=== PATIENT | female | born 1950 ===

== ENCOUNTER 2017-10-14 17:34 | Inpatient (IN) | payer MEDICARE, SELFPAY ==
[~2017-10-14 17:34] MED LIST: Calcium Chloride 1 GM/10 ML Abboject SYRINGE ONE; EPINEPHrine 1 MG/10 ML Abboject SYRINGE ONE; ISOVUE-370 76%-LOCM 1 ML ONE; Sodium Bicarb 50 MEQ/50 ML Abboject 8.4% SYRINGE ONE
[2017-10-14] MEDS ORDERED: Calcium Chloride 1 GM/10 ML Abboject SYRINGE ONE (17:46)
[2017-10-14] MEDS ORDERED: CEFAZOLIN/Water 2 GM/20 ML SYRINGE ONE (17:49)
[2017-10-14] MEDS ORDERED: Adacel (T-DAP) 0.5 ML VIAL ONE (17:51)
[2017-10-14 17:56] LABS: #Eosinphils 0.1 thou/uL (0.0-0.7); #Lymphocytes 4.2 thou/uL (1.20-3.40); #Monocytes 0.2 thou/uL (0.11-0.59); #Neutrophils 7.7 thou/uL (1.40-6.50); %Basophils 0.3 % (0.0-1.0); %Eosinophils 0.7 % (0.0-10.0); %Lymphocytes 34.5 % (21.0-51.0); %Monocytes 1.7 % (0.0-10.0); %Neutrophils 62.8 % (42.0-75.0); Hemoglobin 11.4 g/dL (12.0-16.0); Mean Corpuscular HGB CONC 32.7 g/dL (32.0-36.0); Mean Corpuscular Hemoglobin 28.8 pg (27.0-31.0); Mean Corpuscular Volume 87.9 fl (81.0-99.0); Platelet Count 308 thou/uL (130-400); RBC Distribution Width 13.7 % (11.5-14.5); Red Blood Cell (RBC) Count 3.98 mill/uL (4.20-5.40); White Blood Cell (WBC) Count 12.2 thou/uL (4.8-10.8)
[2017-10-14 18:03] LABS: INR-International Normal Ratio 1.2; PTT 23.1 SEC (22.9-36.1); Prothrombin Time 15.5 SEC (12.0-14.7)
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
[2017-10-14 18:14] LABS: ALT (SGPT) 138 U/L (8-55); AST (SGOT) 194 U/L (5-34); Albumin 3.2 g/dL (3.4-4.8); Alkaline Phosphatase 124 U/L (40-150); Anion Gap 14 mmol/L (10-20); BUN (Urea Nitrogen) 14 mg/dL (9.8-20.1); Bilirubin, Total 0.7 mg/dL (0.2-1.2); Calc. Creatinine Clearance 0 mL/min (70-130); Carbon Dioxide 16 mmol/L (23-31); Chloride 115 mmol/L (98-107); Estimated GFR-MDRD 38; Globulin 2.7 g/dL (2.4-3.5); Glucose 158 mg/dL (80-115); Lipase 144 U/L (8-78); Potassium 4.9 mmol/L (3.5-5.1); Protein, Total 5.9 g/dL (6.0-8.3); Sodium 140 mmol/L (136-145)
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
[2017-10-14] MEDS ORDERED: Fentanyl 100 MCG/2 ML VIAL ONE ×3 (18:26→20:01)
[2017-10-14 18:28] LABS: Bilirubin Negative (Negative); Blood, Urine Large (Negative); Clarity CLEAR (Clear); Glucose, Urine (Dipstick) Negative (Negative); Leukocyte Negative (Negative); Nitrite Negative (Negative); Protein, Urine (Dipstick) 30 mg/dL (Neg-Trace); Specific Gravity, Urine 1.019 (1.002-1.036)
[2017-10-14 18:29] LABS: Troponin I 0.121 ng/mL (< 0.028)
[2017-10-14] MEDS ORDERED: fentaNYL Citrate/PF 2,000 MCG in Sodium Chloride 0.9% 60 ML IV SCH (18:30)
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
[2017-10-14 18:31] LABS: Bacteria/HPF None Seen HPF (None Seen); Hyaline Casts/LPF 4-6 HYALINE CAST LPF (0-3 Hyaline); Pathc Cast-AUWi Flag 1.16 (0-2.49); RBC/HPF GREATER THAN 50-TNTC HPF (0-3)
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
[2017-10-14 18:35] LABS: Calcium Greater than 17.0 mg/dL (7.8-10.44)
[2017-10-14 18:37] LABS: Amphetamine Not Detected (NotDetected); Barbiturates Screen Not Detected (NotDetected); Benzodiazepine Screen Not Detected (NotDetected); Cocaine Metabolite Screen Not Detected (NotDetected); Medtox Control Line Valid? VALID (VALID); Medtox Reader # READER 1; Methadone Not Detected (NotDetected); Methamphetamine Not Detected (NotDetected); Opiate Screen Not Detected (NotDetected); Oxycodone Screen Not Detected (NotDetected); Phencyclidine (PCP) Not Detected (NotDetected); THC/Cannabinoid Screen Not Detected (NotDetected); Tricyclic Screen Not Detected (NotDetected)
[2017-10-14 18:38] LABS: CKMB 6.7 ng/mL (0-6.6)
[2017-10-14 18:40] LABS: Renal Epithelial None Seen HPF (0-3); Transitional Epithelial NONE SEEN HPF (0-3)
[2017-10-14] MEDS ORDERED: Dextrose 50% Abboject 50 ML SYRINGE SLOW IVP PRN (19:14)
[2017-10-14] MEDS ORDERED: Dextrose 5% in Water 1,000 ML IV PRN (19:14)
[2017-10-14] MEDS ORDERED: Ondansetron HCl/PF 4 MG/2 ML Vial IVP PRN (19:14)
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
[2017-10-14] MEDS ORDERED: Fentanyl CADD 250 ML IVPB SCH (19:30)
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
[2017-10-14] MEDS ORDERED: PROPOFOL 0 ML ONE (20:06)
[2017-10-14] MEDS ORDERED: Propofol 1,000 MG/100 ML VIAL IV ONE (20:07)
[2017-10-14] MEDS ORDERED: Fentanyl 100 MCG/2 ML VIAL SLOW IVP SCH (20:15)
[2017-10-14] MEDS ORDERED: methylPREDNISolone Sod Succ 2 GM in Sodium Chloride 0.9% 100 ML IVPB SCH (20:30)
[2017-10-14] MEDS ORDERED: Lactated Ringer's 1,000 ML IV SCH (21:00)
[2017-10-14] MEDS ORDERED: METHYLPREDNISOLONE SOD SUCC IVPB SCH (21:00)
[2017-10-14] MEDS ORDERED: Famotidine 40 MG/4 ML VIAL SLOW IVP SCH (21:00)
[2017-10-14] MEDS ORDERED: SODIUM CHLORIDE 0.9% IVPB SCH (21:00)
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
[2017-10-14] MEDS: fentaNYL Citrate/PF 2,000 MCG in Sodium Chloride 0.9% 60 ML IV SCH (21:44)
[2017-10-14 22:22] LABS: Lactic Acid 5.6 mmol/L (0.5-2.2)
[2017-10-14 23:11] LABS: #Lymphocytes 1.2 thou/uL (1.20-3.40); #Monocytes 0.4 thou/uL (0.11-0.59); #Neutrophils 7.6 thou/uL (1.40-6.50); %Basophils 0.1 % (0.0-1.0); %Eosinophils 0.5 % (0.0-10.0); %Lymphocytes 12.6 % (21.0-51.0); %Monocytes 4.7 % (0.0-10.0); %Neutrophils 82.2 % (42.0-75.0); Hemoglobin 13.7 g/dL (12.0-16.0); INR-International Normal Ratio 1.1; Mean Corpuscular HGB CONC 34.6 g/dL (32.0-36.0); Mean Corpuscular Hemoglobin 29.2 pg (27.0-31.0); Mean Corpuscular Volume 84.4 fl (81.0-99.0); Mean Platelet Volume 7.7 fL (7.4-10.4); Platelet Count 240 thou/uL (130-400); Prothrombin Time 14.2 SEC (12.0-14.7); RBC Distribution Width 13.5 % (11.5-14.5); White Blood Cell (WBC) Count 9.3 thou/uL (4.8-10.8)
[2017-10-15] MEDS ORDERED: Morphine 4 MG/ML Carpuject SLOW IVP PRN (00:21)
[2017-10-15 00:23] VITALS: BMI 28.2
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
[2017-10-15] MEDS: Acetaminophen 1,000 MG in Premix Bag 1 BAG IVPB SCH ×5 (02:05→23:16)
[2017-10-15 02:34] LABS: Lactic Acid 12.5 mmol/L (0.5-2.2)
[2017-10-15 02:52] LABS: ALT (SGPT) 114 U/L (8-55); AST (SGOT) 281 U/L (5-34); Albumin 4.2 g/dL (3.4-4.8); Alkaline Phosphatase 130 U/L (40-150); Anion Gap 25 mmol/L (10-20); BUN (Urea Nitrogen) 26 mg/dL (9.8-20.1); Bilirubin, Total 3.2 mg/dL (0.2-1.2); Calc. Creatinine Clearance 37 mL/min (70-130); Calcium 11.3 mg/dL (7.8-10.44); Carbon Dioxide 13 mmol/L (23-31); Chloride 109 mmol/L (98-107); Estimated GFR-MDRD 30; Globulin 3.3 g/dL (2.4-3.5); Glucose 175 mg/dL (80-115); Protein, Total 7.5 g/dL (6.0-8.3); Sodium 144 mmol/L (136-145)
[2017-10-15 03:05] LABS: Band 24 % (5-11); Hemoglobin 14.2 g/dL (12.0-16.0); Lymphocytes 12 % (21-51); MDiff Complete? YES; Mean Corpuscular HGB CONC 33.9 g/dL (32.0-36.0); Mean Corpuscular Hemoglobin 28.3 pg (27.0-31.0); Mean Corpuscular Volume 83.5 fl (81.0-99.0); Mean Platelet Volume 7.5 fL (7.4-10.4); Monocytes 4 % (0-10); Neutrophil 59 % (42-75); PLT Morphology Comment Appears Adequate; Platelet Count 231 thou/uL (130-400); RBC Distribution Width 13.7 % (11.5-14.5); RBC Morphology Normal; Reactive Lymphocytes 1 % (0-10); Red Blood Cell (RBC) Count 5.01 mill/uL (4.20-5.40); White Blood Cell (WBC) Count 9.8 thou/uL (4.8-10.8)
[2017-10-15 03:25] LABS: CO2 Tension 33.5 mmHg (35.0-45.0); O2 Tension (PaO2) 581.3 mmHg (80.0-100.0); pH, Arterial 7.46 (7.35-7.45)
[2017-10-15 03:26] LABS: Actual Bicarbonate (HCO3a) 23.1 mEq/L (22-26); Base Excess (BEa) -0.1 mEq/L (0 (+/-) 2.5); Calcium, Ionized 1.4 mmol/L (1.12-1.30); Hematocrit-ABG 38.9 % (36.0-47.0); Hemoglobin (Hb) 12.9 g/dL (12.0-16.0)
[2017-10-15 03:27] LABS: ALV-art Gradient 89.825 (0-20); Puncture Site RBRACH
[2017-10-15] MEDS: METHYLPREDNISOLONE SOD SUCC IVPB SCH (03:38)
[2017-10-15] MEDS: SODIUM CHLORIDE 0.9% IVPB SCH (03:38)
[2017-10-15] MEDS: Propofol 1,000 MG/100 ML VIAL IV PRN ×2 (04:41→17:27)
[2017-10-15 04:56] LABS: CO2 Tension 16.5 mmHg (35.0-45.0); pH, Arterial 7.49 (7.35-7.45)
[2017-10-15 04:57] LABS: ALV-art Gradient 147.075 (0-20); Actual Bicarbonate (HCO3a) 12.3 mEq/L (22-26); Base Excess (BEa) -8.3 mEq/L (0 (+/-) 2.5); Calcium, Ionized 1.3 mmol/L (1.12-1.30); Hematocrit-ABG 38.9 % (36.0-47.0); Hemoglobin (Hb) 13.2 g/dL (12.0-16.0); O2 Tension (PaO2) 188.8 mmHg (80.0-100.0); Puncture Site ALINE
[2017-10-15] MEDS: Lactated Ringer's 1,000 ML IV SCH ×3 (05:20→17:26)
[2017-10-15] MEDS ORDERED: Potassium Chloride 40 MEQ in Premix Bag 1 BAG IVPB SCH (05:30)
[2017-10-15 05:58] LABS: Troponin I 1.135 ng/mL (< 0.028)
[2017-10-15] MEDS: Pantoprazole 40 MG VIAL IVP SCH (08:11)
[2017-10-15] MEDS ORDERED: Sodium Chloride 0.9% 20 ML ONE (09:33)
[2017-10-15] MEDS ORDERED: Thrombin 5000 UNITS/5 ML VIAL ONE ×2 (09:34→13:38)
[2017-10-15] MEDS ORDERED: Bacitracin Zinc Ointment 30 gm TUBE ONE (09:34)
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
[2017-10-15] MEDS ORDERED: Rocuronium Bromide 50 MG/5 ML VIAL ONE ×2 (11:55→14:59)
[2017-10-15] MEDS ORDERED: Sodium Bicarbonate 2.5 MEQ/5 ML VIAL ONE (12:34)
[2017-10-15] MEDS ORDERED: Sodium Bicarb 50 MEQ/50 ML Abboject 8.4% SYRINGE ONE ×2 (12:34→12:36)
[2017-10-15] MEDS ORDERED: Sodium Chloride 0.45% 1,000 ML IV SCH (13:15)
[2017-10-15] MEDS ORDERED: PHENYLEPHRINE-NS 100 MCG/ML 10 ML SYRINGE ONE ×4 (13:35→20:11)
[2017-10-15] MEDS ORDERED: Lidocaine 1% w/Epinephrine 1:200K 30 ML VIAL ONE (15:19)
[2017-10-15] MEDS ORDERED: CEFAZOLIN 1 GM VIAL ONE (15:20)
[2017-10-15] MEDS ORDERED: Midazolam HCl 2 mg/2 ml Vial ONE (16:21)
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
[2017-10-15] MEDS: fentaNYL Citrate/PF 2,000 MCG in Sodium Chloride 0.9% 60 ML IV SCH (17:54)
[2017-10-15 18:06] LABS: Actual Bicarbonate (HCO3a) 15.8 mEq/L (22-26); CO2 Tension 34.7 mmHg (35.0-45.0); O2 Tension (PaO2) 107.7 mmHg (80.0-100.0); pH, Arterial 7.28 (7.35-7.45)
[2017-10-15 18:07] LABS: Hematocrit-ABG 31.7 % (36.0-47.0); Hemoglobin (Hb) 11.4 g/dL (12.0-16.0)
[2017-10-15 18:08] LABS: Calcium, Ionized 1.3 mmol/L (1.12-1.30); Puncture Site A-LINE
[2017-10-15 18:09] LABS: ALV-art Gradient 205.425 (0-20)
[2017-10-15] MEDS: HumaLOG 300 UNITS/3 ML VIAL SC PRN (18:38)
[2017-10-15 18:41] LABS: Hemoglobin 11.9 g/dL (12.0-16.0); Mean Corpuscular HGB CONC 33.5 g/dL (32.0-36.0); Mean Corpuscular Hemoglobin 29.2 pg (27.0-31.0); Mean Corpuscular Volume 87.1 fl (81.0-99.0); Mean Platelet Volume 7.8 fL (7.4-10.4); Platelet Count 157 thou/uL (130-400); RBC Distribution Width 13.8 % (11.5-14.5); Red Blood Cell (RBC) Count 4.09 mill/uL (4.20-5.40); White Blood Cell (WBC) Count 9.9 thou/uL (4.8-10.8)
[2017-10-15 18:45] LABS: INR-International Normal Ratio 1.5; PTT 30.9 SEC (22.9-36.1); Prothrombin Time 18.7 SEC (12.0-14.7)
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
[2017-10-15 18:55] LABS: Band 42 % (5-11); Lymphocytes 6 % (21-51); MDiff Complete? YES; Metamyelocyte 6 % (0-0); Monocytes 2 % (0-10); Neutrophil 44 % (42-75); PLT Morphology Comment Appears Adequate; Polychromasia SLIGHT = 2-3 cells (100X) (0-2/hpf); Schistocytes SLIGHT = 2-5 cells (100X) (0-1/hpf)
[2017-10-15 19:08] LABS: Lactic Acid 7.4 mmol/L (0.5-2.2)
[2017-10-15] MEDS ORDERED: Calcium Chloride 1 GM/10 ML Abboject SYRINGE ONE (20:11)
[2017-10-15] MEDS: CEFAZOLIN 1 GM, Syringe 2.5 ML in Sterile Water 7.5 ML SLOW IVP SCH (20:43)
[2017-10-16] MEDS: Lactated Ringer's 1,000 ML IV SCH ×4 (02:49→21:51)
[2017-10-16] MEDS: SODIUM CHLORIDE 0.9% IVPB SCH (02:49)
[2017-10-16] MEDS: METHYLPREDNISOLONE SOD SUCC IVPB SCH (02:49)
[2017-10-16] MEDS: CEFAZOLIN 1 GM, Syringe 2.5 ML in Sterile Water 7.5 ML SLOW IVP SCH ×3 (02:56→20:46)
[2017-10-16 05:52] LABS: Band 28 % (5-11); Hemoglobin 10.9 g/dL (12.0-16.0); Lymphocytes 7 % (21-51); MDiff Complete? YES; Mean Corpuscular HGB CONC 33.2 g/dL (32.0-36.0); Mean Corpuscular Hemoglobin 28.6 pg (27.0-31.0); Mean Corpuscular Volume 86.1 fl (81.0-99.0); Mean Platelet Volume 7.9 fL (7.4-10.4); Metamyelocyte 2 % (0-0); Neutrophil 63 % (42-75); PLT Morphology Comment Appears Adequate; Platelet Count 154 thou/uL (130-400); RBC Distribution Width 13.9 % (11.5-14.5); Red Blood Cell (RBC) Count 3.83 mill/uL (4.20-5.40); White Blood Cell (WBC) Count 9.3 thou/uL (4.8-10.8)
[2017-10-16 06:00] LABS: Anion Gap 20 mmol/L (10-20); BUN (Urea Nitrogen) 28 mg/dL (9.8-20.1); Calc. Creatinine Clearance 42 mL/min (70-130); Calcium 8.1 mg/dL (7.8-10.44); Carbon Dioxide 13 mmol/L (23-31); Chloride 116 mmol/L (98-107); Estimated GFR-MDRD 37; Glucose 180 mg/dL (80-115); Magnesium 1.4 mg/dL (1.6-2.6); Phosphorus 5.2 mg/dL (2.3-4.7); Sodium 145 mmol/L (136-145)
[2017-10-16] MEDS ORDERED: Sodium Chloride 0.9% 500 ML IVPB PRN (06:03)
[2017-10-16] MEDS: Sodium Chloride 0.9% 500 ML IVPB SCH ×2 (06:11→07:12)
[2017-10-16 07:26] LABS: Actual Bicarbonate (HCO3a) 13.5 mEq/L (22-26); Base Excess (BEa) -9.4 mEq/L (0 (+/-) 2.5); CO2 Tension 21.4 mmHg (35.0-45.0); Hematocrit-ABG 26.8 % (36.0-47.0); O2 Tension (PaO2) 108.7 mmHg (80.0-100.0); pH, Arterial 7.42 (7.35-7.45)
[2017-10-16 07:27] LABS: Puncture Site ALINE
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
--- NOTE | 2017-10-16 08:31 | RAD ---
CHEST 1 VIEW: Date: 10/16/17 COMPARISON: 10/14/14. HISTORY: Respiratory failure. FINDINGS: Extensive postsurgical changes are noted. There is a right and left-sided chest tube. Endotracheal tu be is identified. NG tube extends beyond the diaphragm. Slightly improved aeration lung parenchyma. P atchy interstitial and to a lesser extent alveolar opacities do remain. IMPRESSION: 1. Persistent opacification of lung parenchyma. Continued surveillance. 2. Interval placement of screws in the thoracic spine. 3. Interval placement of bilateral chest tube. No obvious pneumothorax. POS: [facility]
[2017-10-16] MEDS ORDERED: Vasopressin 40 UNIT, Admixture Fee 1 EACH in Sodium Chloride 0.9% 100 ML IV SCH (09:30)
[2017-10-16] MEDS: Pantoprazole 40 MG VIAL IVP SCH (09:52)
[2017-10-16] MEDS: Piperacillin/Tazobactam 3.375 GM in Sodium Chloride 0.9% 100 ML IVPB SCH ×3 (09:52→22:25)
[2017-10-16] MEDS: Norepinephrine 8 MG/250 ML BAG IVPB PRN (09:53)
--- NOTE | 2017-10-16 12:45 | EKG ---
Test Reason : Blood Pressure : / mmHG Vent. Rate : 070 BPM Atrial Rate : 070 BPM P-R Int : 140 ms QRS Dur : 076 ms QT Int : 420 ms P-R-T Axes : 075 086 074 degrees QTc Int : 453 ms Normal sinus rhythm Normal ECG Poor quality suggest repeat No previous ECGs available Confirmed by DR. Briana CARRASQUILLO ([id number]) on 10/16/2017 12:44:59 PM Referred By: MATIAS Confirmed By:DR. Briana CARRASQUILLO
--- NOTE | 2017-10-16 13:48 | PRG ---
DATE OF SERVICE: 10/16/2017 Ms. Ranjana Hendricks is postoperative day 1 from a thoracic stabilization and decompression procedure and placement of external ventricular drain. Her sedation is starting to be weaned and really all s he does is a shrug her shoulders to noxious stimuli. She is not yet moving her arms and legs. It gross s been very difficult to tell really how well the patient will do. I should note that the EVD is fun ctioning properly and we have good flow. ICPs have been in an acceptable range. We will continue to wean her sedation and try and get her some form of an exam with a likely head CT planned for tomorro w morning.
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
[2017-10-16] MEDS: HumaLOG 300 UNITS/3 ML VIAL SC PRN (17:08)
[2017-10-16] MEDS: Propofol 1,000 MG/100 ML VIAL IV PRN (18:30)
[2017-10-16] MEDS ORDERED: Vecuronium 10 MG VIAL ONE (19:43)
[2017-10-16] MEDS: Acetaminophen 1,000 MG in Premix Bag 1 BAG IVPB SCH (19:58)
[2017-10-16] MEDS ORDERED: Mannitol 12.5 GM/50 ML IV SCH (20:30)
[2017-10-16] MEDS ORDERED: Calcium Chloride 1 GM/10 ML Abboject SYRINGE ONE (20:35)
[2017-10-16 20:49] LABS: Sodium 145 mmol/L (136-145)
[2017-10-16 21:18] LABS: Actual Bicarbonate (HCO3a) 16.7 mEq/L (22-26); Base Excess (BEa) -7.7 mEq/L (0 (+/-) 2.5); CO2 Tension 29.5 mmHg (35.0-45.0); O2 Tension (PaO2) 98.1 mmHg (80.0-100.0); pH, Arterial 7.37 (7.35-7.45)
[2017-10-16 21:19] LABS: Hematocrit-ABG 21.9 % (36.0-47.0)
[2017-10-16 21:20] LABS: ALV-art Gradient 150.225 (0-20); Calcium, Ionized 1.2 mmol/L (1.12-1.30); Puncture Site LINE
[2017-10-16 22:36] LABS: Actual Bicarbonate (HCO3a) 18.5 mEq/L (22-26); Base Excess (BEa) -7.1 mEq/L (0 (+/-) 2.5); CO2 Tension 37.3 mmHg (35.0-45.0); Hematocrit-ABG 23.3 % (36.0-47.0); Hemoglobin (Hb) 8.4 g/dL (12.0-16.0); O2 Tension (PaO2) 120.8 mmHg (80.0-100.0); Puncture Site ALINE; pH, Arterial 7.31 (7.35-7.45)
[2017-10-16 22:37] LABS: ALV-art Gradient 117.775 (0-20)
[2017-10-16] MEDS ORDERED: Acetaminophen 650 MG in Premix Bag 1 BAG IVPB SCH (23:59)
[2017-10-17] MEDS: HumaLOG 300 UNITS/3 ML VIAL SC PRN ×5 (00:09→23:04)
[2017-10-17] MEDS: Norepinephrine 8 MG/250 ML BAG IVPB PRN ×2 (01:01→10:36)
[2017-10-17] MEDS: Acetaminophen 1,000 MG in Premix Bag 1 BAG IVPB SCH ×4 (02:27→19:46)
[2017-10-17] MEDS ORDERED: Mannitol 12.5 GM/50 ML IV SCH (03:15)
[2017-10-17] MEDS ORDERED: Vecuronium Bromide 50 MG in Sodium Chloride 0.9% 250 ML 250 ML IV SCH (04:15)
[2017-10-17 04:55] LABS: Hemoglobin 9.3 g/dL (12.0-16.0); Mean Corpuscular HGB CONC 34.7 g/dL (32.0-36.0); Mean Corpuscular Hemoglobin 29.6 pg (27.0-31.0); Mean Corpuscular Volume 85.5 fl (81.0-99.0); Mean Platelet Volume 8.8 fL (7.4-10.4); Platelet Count 130 thou/uL (130-400); RBC Distribution Width 14.2 % (11.5-14.5); Red Blood Cell (RBC) Count 3.12 mill/uL (4.20-5.40); White Blood Cell (WBC) Count 4.9 thou/uL (4.8-10.8)
[2017-10-17 04:56] LABS: Anion Gap 14 mmol/L (10-20); BUN (Urea Nitrogen) 28 mg/dL (9.8-20.1); Calc. Creatinine Clearance 46 mL/min (70-130); Calcium 8.4 mg/dL (7.8-10.44); Carbon Dioxide 20 mmol/L (23-31); Chloride 118 mmol/L (98-107); Estimated GFR-MDRD 41; Glucose 192 mg/dL (80-115); Magnesium 2.1 mg/dL (1.6-2.6); Phosphorus 3.2 mg/dL (2.3-4.7); Potassium 4.1 mmol/L (3.5-5.1); Sodium 148 mmol/L (136-145)
[2017-10-17 04:58] LABS: Actual Bicarbonate (HCO3a) 19.2 mEq/L (22-26); Base Excess (BEa) -5.7 mEq/L (0 (+/-) 2.5); Calcium, Ionized 1.2 mmol/L (1.12-1.30); Hematocrit-ABG 22.7 % (36.0-47.0); Hemoglobin (Hb) 8.1 g/dL (12.0-16.0); O2 Tension (PaO2) 94.1 mmHg (80.0-100.0); Puncture Site ALINE; pH, Arterial 7.36 (7.35-7.45)
[2017-10-17] MEDS: Piperacillin/Tazobactam 3.375 GM in Sodium Chloride 0.9% 100 ML IVPB SCH ×4 (05:00→21:14)
[2017-10-17] MEDS: Mannitol 12.5 GM/50 ML IV SCH ×4 (05:08→23:02)
[2017-10-17] MEDS: CEFAZOLIN 1 GM, Syringe 2.5 ML in Sterile Water 7.5 ML SLOW IVP SCH ×3 (05:12→21:08)
[2017-10-17 05:48] LABS: Band 13 % (5-11); Lymphocytes 5 % (21-51); MDiff Complete? YES; Metamyelocyte 5 % (0-0); Monocytes 8 % (0-10); Neutrophil 69 % (42-75); PLT Morphology Comment Appears Adequate; RBC Morphology Normal; Vacuoles MODERATE
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
--- NOTE | 2017-10-17 07:52 | RAD ---
SINGLE VIEW OF THE CHEST: COMPARISON: 10/16/17. HISTORY: Respiratory failure. Ventilated patient. FINDINGS: A single view of the chest shows an enlarged but stable cardiomediastinal silhouette. There is obscu rity of the left hemidiaphragm which may represent a left lower lobe infiltrate. There are bilateral chest tubes without evidence of pneumothorax. The endotracheal tube and NG tube are unchanged in po sition. Hardware is seen in the thoracic spine. IMPRESSION: Left lower lobe infiltrate. POS: [facility]
[2017-10-17 08:02] LABS: Actual Bicarbonate (HCO3a) 18.9 mEq/L (22-26); Base Excess (BEa) -5.8 mEq/L (0 (+/-) 2.5); CO2 Tension 33.7 mmHg (35.0-45.0); Calcium, Ionized 1.2 mmol/L (1.12-1.30); Hematocrit-ABG 26.5 % (36.0-47.0); Hemoglobin (Hb) 9.4 g/dL (12.0-16.0); O2 Tension (PaO2) 107.8 mmHg (80.0-100.0); pH, Arterial 7.37 (7.35-7.45)
[2017-10-17 08:03] LABS: ALV-art Gradient 133.275 (0-20); Puncture Site ALINE
--- NOTE | 2017-10-17 08:09 | CT ---
PRELIMINARY REPORT/[facility]/EMERGENTY AFTER-HOURS PROCEDURE CT Head Without Intravenous Contrast EXAM DATE/TIME: Exam ordered 10/17/2017 3:22 AM CLINICAL HISTORY: 67 years old, female; Condition or disease; Other: Follow up tbi TECHNIQUE: Axial computed tomography images of the head/brain without intravenous contrast. COMPARISON: e+1 CT Brain WO Con 2017-10-15 03:55 FINDINGS: Brain: Stable extra-axial blood along the tentorium cerebelli and in the quadrigeminal cistern. Persi stent but decreased volume of bifrontal subarachnoid hemorrhage. The degree of diffuse sulcal effacem ent and effacement of the basal cisterns has increased compared to the prior study, consistent with worsening diffuse cerebral edema. There is now a generalized obscuring of most of the loza-white matter differentiation, suggesting anoxic brain injury. Large area of cytotoxic edema inv olving portions of both cerebellar hemispheres and the cerebellar vermis as well as multiple small ir regular areas of cytotoxic edema in the periphery of the cerebral hemispheres bilaterally, consistent with extensive acute/subacute embolic infarctions. Midline shift: No midline shift. Ventricles: See below. Bones/joints: Unremarkable. No acute fracture. Soft tissues: Unremarkable. Sinuses: Fluid levels in the sphenoid and ethmoid sinuses may signify sinusitis. Mastoid air cells: Unremarkable as visualized. No mastoid effusion. Tubes, lines and devices: Interval placement of right frontal shunt catheter. Left lateral ventricle is mildly enlarged compared to the prior study in the right lateral ventricle is mildly decreased in caliber compared to the prior study. IMPRESSION: 1. Worsening diffuse cerebral edema. There is now a generalized obscuring of most of the loza white m atter differentiation, suggesting anoxic brain injury. 2. Interval development of multiple acute/subacute bilateral supra-and infratentorial embolic infarct ions. 3. Stable extra-axial blood along the tentorium cerebelli and in the quadrigeminal cistern. Persisten t but decreased volume of bifrontal subarachnoid hemorrhage. Thank you for allowing us to participate in the care of your patient. Dictated and Authenticated by: Dayday Smith MD 10/17/2017 3:44 AM Central Time ([place] & [place]) FINAL REPORT NONCONTRAST HEAD CT: COMPARISON: 10/17/17. HISTORY: Followup intracranial hemorrhage. Enlarged ventricles. TECHNIQUE: Noncontrast head CT is performed from the skull base to the skull vertex. FINDINGS: This report is in agreement with the preliminary report by [facility]. Interval placement of a right-sided ventriculoperitoneal shunt catheter. Ventricular system is decompressed. Redemonstration of stable intracranial hemorrhage. Interval development of hypodensities in the cerebrum and cerebellum sugges ting multifocal infarcts. There is overall loss of cortical loza-white matter differentiation sugges ting anoxic brain injury. POS: TERE
[2017-10-17] MEDS: Lactated Ringer's 1,000 ML IV SCH ×3 (08:25→16:35)
[2017-10-17] MEDS: Pantoprazole 40 MG VIAL IVP SCH (08:44)
[2017-10-17] MEDS: Propofol 1,000 MG/100 ML VIAL IV PRN ×2 (11:30→16:46)
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
[2017-10-17] MEDS ORDERED: VANCOMYCIN IVPB PRN (16:55)
[2017-10-17] MEDS: Vancomycin HCl 1 GM in Premix Bag 1 BAG IVPB SCH (17:15)
[2017-10-17 22:42] LABS: Sodium 149 mmol/L (136-145)
[2017-10-18] MEDS: Propofol 1,000 MG/100 ML VIAL IV PRN ×2 (00:06→05:55)
[2017-10-18] MEDS: Norepinephrine 8 MG/250 ML BAG IVPB PRN (00:41)
[2017-10-18] MEDS: Lactated Ringer's 1,000 ML IV SCH ×3 (00:44→14:12)
[2017-10-18] MEDS: Piperacillin/Tazobactam 3.375 GM in Sodium Chloride 0.9% 100 ML IVPB SCH ×3 (03:05→14:12)
[2017-10-18] MEDS: CEFAZOLIN 1 GM, Syringe 2.5 ML in Sterile Water 7.5 ML SLOW IVP SCH ×2 (03:05→11:23)
[2017-10-18] MEDS: HumaLOG 300 UNITS/3 ML VIAL SC PRN ×2 (04:03→09:17)
[2017-10-18 04:20] LABS: Sodium 150 mmol/L (136-145)
[2017-10-18] MEDS: Mannitol 12.5 GM/50 ML IV SCH ×3 (05:08→15:55)
[2017-10-18 07:03] LABS: Actual Bicarbonate (HCO3a) 22.6 mEq/L (22-26); Base Excess (BEa) -2.2 mEq/L (0 (+/-) 2.5); CO2 Tension 38.6 mmHg (35.0-45.0); Calcium, Ionized 1.1 mmol/L (1.12-1.30); Hematocrit-ABG 26.6 % (36.0-47.0); Hemoglobin (Hb) 10.1 g/dL (12.0-16.0); O2 Tension (PaO2) 127.3 mmHg (80.0-100.0); Puncture Site LRA; pH, Arterial 7.39 (7.35-7.45)
[2017-10-18] MEDS: Pantoprazole 40 MG VIAL IVP SCH (08:31)
[2017-10-18 09:05] LABS: Band 28 % (5-11); Hemoglobin 9.8 g/dL (12.0-16.0); Lymphocytes 7 % (21-51); MDiff Complete? YES; Mean Corpuscular HGB CONC 33.1 g/dL (32.0-36.0); Mean Corpuscular Hemoglobin 28.7 pg (27.0-31.0); Mean Corpuscular Volume 86.5 fl (81.0-99.0); Mean Platelet Volume 9.6 fL (7.4-10.4); Metamyelocyte 2 % (0-0); Monocytes 1 % (0-10); Neutrophil 62 % (42-75); Nucleated RBC 1 % (0); PLT Morphology Comment Appears Decreased; Platelet Count 110 thou/uL (130-400); RBC Distribution Width 14.5 % (11.5-14.5); RBC Morphology Normal; Red Blood Cell (RBC) Count 3.42 mill/uL (4.20-5.40)
--- NOTE | 2017-10-18 09:48 | PRG ---
DATE OF SERVICE: 10/18/2017 Ms. Hendricks unfortunately has developed significant swelling and cerebral edema with elevated ICPs. Sh helen has also become hypothermic and essentially demonstrating signs and symptoms of septic shock. Dr. Duffy was concerned about ischemic colitis at the time of her injury, likely leading to translocation and bacteremia. Certainly fits her profile. I have had a long discussion with the family today and that they are going to pursue withdrawal of care.
[2017-10-18 09:53] LABS: ALT (SGPT) 9 U/L (8-55); AST (SGOT) 96 U/L (5-34); Albumin 3.3 g/dL (3.4-4.8); Alkaline Phosphatase 56 U/L (40-150); Bilirubin, Direct 1.6 mg/dL (0.1-0.3); Bilirubin, Total 2.3 mg/dL (0.2-1.2)
[2017-10-18 10:02] LABS: Anion Gap 13 mmol/L (10-20); BUN (Urea Nitrogen) 22 mg/dL (9.8-20.1); Calc. Creatinine Clearance 67 mL/min (70-130); Calcium 8.2 mg/dL (7.8-10.44); Carbon Dioxide 21 mmol/L (23-31); Chloride 117 mmol/L (98-107); Estimated GFR-MDRD 62; Glucose 175 mg/dL (80-115); Magnesium 2.2 mg/dL (1.6-2.6); Phosphorus 1.8 mg/dL (2.3-4.7); Potassium 2.9 mmol/L (3.5-5.1); Sodium 148 mmol/L (136-145)
[2017-10-18] MEDS ORDERED: Potassium Phosphate 30 MMOL in Sodium Chloride 0.9% 250 ML 250 ML IVPB SCH (10:15)
[2017-10-18 10:23] VITALS: BP 159/70
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
--- NOTE | 2017-10-18 14:13 | NM ---
NUCLEAR MEDICINE BRAIN CEREBRAL PERFUSION EXAM: CLINICAL HISTORY: Posttraumatic brain injury. FINDINGS: Multiplanar scintigraphic imaging in frontal and oblique views is acquired, which reveals scintigraph ic activity of the brain, to indicate perfusion within both cerebral hemispheres. IMPRESSION: Nuclear medicine brain perfusion evaluation does reveal evidence of cerebral flow. Therefore, this e xam is not consistent with brain . Findings were discussed, via telephone, with the patient's s urgeon, Juan Duffy DO, at 1305 hours, 10/18/2017. CODE CR POS: TERE
[2017-10-18] MEDS: Vancomycin HCl 1 GM in Premix Bag 1 BAG IVPB SCH (15:56)
[2017-10-18 16:11] VITALS: TEMP 94.2
--- NOTE | 2017-10-19 08:20 | ADD-PRG ---
DATE OF SERVICE: 10/18/2017 ADDENDUM Ms. Hendricks underwent a brain flow study. The study shows brain perfusion. She remains with no brains tem function at this time. I have communicated the above findings with the patient's family at [facility] and the rest of the family members are arriving after which the family is considering withdrawal f rom life support with full knowledge that this would certainly be to this patient's demise.
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
== END 2017-10-18 17:26 | disposition expired | DRG 955 ==
LOC: ERS 17:34 → SDC/OP 18:49 → CCU 19:27 → EDBD 19:27
PROVIDERS: ADMIT Surgery; ATTEND Surgery
PROC: 0W9900Z Drainage of Right Pleural Cavity with Drainage Device, Open Approach (ICD-10-PCS; 2017-10-14)
PROC: 0W9B00Z Drainage of Left Pleural Cavity with Drainage Device, Open Approach (ICD-10-PCS; 2017-10-14)
PROC: 05H633Z Insertion of Infusion Device into Left Subclavian Vein, Percutaneous Approach (ICD-10-PCS; 2017-10-14)
PROC: 03HY32Z Insertion of Monitoring Device into Upper Artery, Percutaneous Approach (ICD-10-PCS; 2017-10-14)
PROC: 5A1945Z Respiratory Ventilation, 24-96 Consecutive Hours (ICD-10-PCS; 2017-10-14)
PROC: 0PH404Z Insertion of Internal Fixation Device into Thoracic Vertebra, Open Approach (ICD-10-PCS; principal; 2017-10-15)
PROC: 009600Z Drainage of Cerebral Ventricle with Drainage Device, Open Approach (ICD-10-PCS; 2017-10-15)
PROC: 00NX0ZZ Release Thoracic Spinal Cord, Open Approach (ICD-10-PCS; 2017-10-15)
PROC: 0RG7071 Fusion of 2 to 7 Thoracic Vertebral Joints with Autologous Tissue Substitute, Posterior Approach, Posterior Column, Open Approach (ICD-10-PCS; 2017-10-15)
DX: S06.6X9A Traumatic subarachnoid hemorrhage with loss of consciousness of unspecified duration, initial encounter (principal); S36.031A Moderate laceration of spleen, initial encounter; J96.90 Respiratory failure, unspecified, unspecified whether with hypoxia or hypercapnia; R53.2 Functional quadriplegia; S27.2XXA Traumatic hemopneumothorax, initial encounter; G93.6 Cerebral edema; A41.9 Sepsis, unspecified organism; R65.21 Severe sepsis with septic shock; K55.039 Acute (reversible) ischemia of large intestine, extent unspecified; S22.059A Unspecified fracture of T5-T6 vertebra, initial encounter for closed fracture; S22.43XA Multiple fractures of ribs, bilateral, initial encounter for closed fracture; S27.322A Contusion of lung, bilateral, initial encounter; E87.2 Acidosis; E87.0 Hyperosmolality and hypernatremia; N17.9 Acute kidney failure, unspecified; R40.2312 Coma scale, best motor response, none, at arrival to emergency department; R40.2112 Coma scale, eyes open, never, at arrival to emergency department; R40.2212 Coma scale, best verbal response, none, at arrival to emergency department; E87.6 Hypokalemia; E83.39 Other disorders of phosphorus metabolism; Z66 Do not resuscitate; V49.40XA Driver injured in collision with unspecified motor vehicles in traffic accident, initial encounter
CPT/HCPCS: 36415; 36416; 36430; 36556; 51702; 70450; 70498; 71045; 71260; 72141; 72146; 72148; 72170; 74177; 76001; 78610; 80048; 80053; 80076; 80306; 81003; 81015; 82150; 82553; 82805; 83605; 83690; 83735; 83930; 84100; 84145; 84295; 84484; 85007; 85025; 85027; 85610; 85730; 86850; 86900; 86901; 87040; 87086; 89220; 90471; 90715; 92950; 93005; 93010; 93306; 94002; 94003; 94640; 96365; 96374; 96375; 99292; A4216; A9521; C1713; C1768; C9113; G0390; J0131; J0171; J0690; J2150; J2250; J2543; J2704; J2930; J3010; J3370; J3480; J3490; J7050; J7620; L0639; P9016; P9045; P9048